=== PATIENT | male | born 1995 | race Caucasian/White ===

== ENCOUNTER → 2018-08-01 | Outpatient (CLI) | payer OTHER ==
[~2018-08-01] MED LIST: GADOBUTROL 10 ML VIAL IVP ONE; GLUCAGON HCL 0.3 MG in SYRINGE 0.3 ML IVP ONE
== END ==
LOC: FIMAGING 10:11
PROVIDERS: ATTEND Physician Assistant
DX: R10.31 Right lower quadrant pain (principal)
CPT/HCPCS: A9585; J1610

== ENCOUNTER 2018-10-16 21:08 | Observation (INO) | payer OTHER ==
--- NOTE | 2018-10-16 21:36 | EDPHY ---
H & P Time Seen by Provider: 10/16/18 21:35 HPI/ROS: Chief complaint. Left-sided body numb, facial twitching HPI. 22-year-old male presents with left-sided weakness, left facial tremor, numbness on his left side. He was riding in a car and began to feel weird. He feels he had some transient left vision change in left hearing change. Last time normal was 8:00 p.m. With onset. He arrived by private vehicle and not by EMS. No chest pain or shortness of breath. No headache. His weakness and paresthesias and facial tremor continue in the ED. Stroke activation was called by me. He is not sick. No fever. No recent head injury. ROS 10 systems were reviewed and negative with the exception of the elements mentioned in the history of present illness Past Medical/Surgical History: Anxiety, colon problems Social History: , nonsmoker, no alcohol Smoking Status: Never smoked Physical Exam: General Appearance: Alert well-developed male moderate distress vital signs significant heart rate 104 Eyes: Pupils equal and round no pallor or injection. ENT, Mouth: Mucous membranes are moist. Respiratory: There are no retractions, lungs are clear to auscultation. Cardiovascular: Regular rate and rhythm. Gastrointestinal: Abdomen is soft and nontender, no masses, bowel sounds normal. Neurological: Awake and alert. Speech is somewhat halting. Cranial nerve testing shows paresthesias to the left face. There is left mouth twitching. Left-sided pronator drift. Abnormal left [id number]. Abnormal heel-to- bedoya left leg. Numbness sensation to left arm left leg Skin: Warm and dry, no rashes. Musculoskeletal: Neck is supple nontender. Extremities symmetrical, full range of motion. Psychiatric: Patient is oriented X 3, there is no agitation. Constitutional: Initial Vital Signs Temperature (C) 36.5 C 10/16/18 21:10 Heart Rate 104 H 10/16/18 21:10 Respiratory Rate 18 10/16/18 21:10 Blood Pressure 148/111 H 10/16/18 21:10 O2 Sat (%) 97 10/16/18 21:10 O2 Delivery Mode Room Air Allergies/Adverse Reactions: No Known Allergies Allergy (Unverified 10/16/18 21:18) Home Medications: Medication Instructions Recorded Escitalopram Oxalate [Lexapro] 10 mg PO DAILY 10/16/18 Medical Decision Making - Diagnostics EKG Interpretation: EKG interpreted by me shows normal sinus rhythm normal interval and axis. QRS is normal there is no significant ST elevation or depression. No arrhythmia. The rate is 86 Imaging Results: Imaging Impressions Head CT 10/16/18 21:37 Impression: 1. No significant intracranial abnormality seen. If symptoms worsen, additional imaging may be necessary. Findings discussed with Sree Keller M.D. at 22:00 hour, 10/16/2018. Chest X-Ray 10/16/18 21:45 Impression: Normal chest x-ray. Head CTA 10/16/18 22:27 Impression: 1. Normal CT angiogram of the neck. Incidental tortuosity of the distal right ICA below the skull base. 2. Normal CT angiogram of [place], as detailed above. Note: All calculations were performed using NASCET criteria. Findings discussed with Sree Keller M.D. at 23:01 hour, 10/16/2018. Neck CTA 10/16/18 22:27 Impression: 1. Normal CT angiogram of the neck. Incidental tortuosity of the distal right ICA below the skull base. 2. Normal CT angiogram of [place], as detailed above. Note: All calculations were performed using NASCET criteria. Findings discussed with Sree Keller M.D. at 23:01 hour, 10/16/2018. Noncontrast head CT reviewed by me and discussed with Dr. Morales is normal. No intracranial bleeding CTA head and neck reviewed by me and discussed with Dr. Morales are normal Chest x-ray interpreted by me is normal Procedures: Stroke activation is activated after I saw the patient ED Course/Re-evaluation: Patient examined on the robot by Dr. Pinedo for [facility]. He feels that this is likely functional or behavioral and not CVA. He recommends no tPA at this point in time. He recommends CTA head and neck. Re-evaluation upon return from CT a patient's symptoms continue. I have placed another phone call to Dr. Pinedo. I have reviewed imaging studies with Dr. Pinedo including treatment plan. He still feels no tPA for this patient. He recommends MRI without contrast. I consulted and discussed the case with Dr. [place] who see the patient in the ED. He agrees with the admission. MRI has been ordered. Differential Diagnosis: I considered CVA, intracranial bleeding, conversion reaction, anxiety - Data Points Laboratory Results: Laboratory Results 10/16/18 21:48 10/16/18 21:32 10/16/18 10/16/18 10/16/18 22:00 21:52 21:51 WBC RBC Hgb POC Hgb 16.0 gm/dL gm/dL (13.7-17.5) Hct POC Hct 47 % % (40-51) MCV MCH MCHC RDW Plt Count MPV Neut % (Auto) Lymph % (Auto) Cooke % (Auto) Eos % (Auto) Baso % (Auto) Nucleat RBC Rel Count Absolute Neuts (auto) Absolute Lymphs (auto) Absolute Monos (auto) Absolute Eos (auto) Absolute Basos (auto) Absolute Nucleated RBC Immature Gran % Immature Gran # PT 13.6 SEC SEC (12.0-15.0) INR 1.08 (0.83-1.16) APTT 24.2 SEC SEC (23.0-38.0) POC Sodium 143 mEq/L mEq/L (135-145) Sodium POC Potassium 3.4 mEq/L mEq/L (3.3-5.0) Potassium POC Chloride 103 mEq/L mEq/L (97-110) Chloride Carbon Dioxide POC Total CO2 26 mEq/L mEq/L (22-31) Anion Gap POC BUN 15 mg/dL mg/dL (7-23) BUN Creatinine POC Creatinine 0.7 mg/dL mg/dL (0.7-1.3) Estimated GFR Glucose POC Glucose 127 mg/dL H mg/dL (70-100) Calcium POC Troponin I 0.00 ng/mL ng/mL (0.00-0.08) 10/16/18 10/16/18 10/16/18 21:48 21:32 21:32 WBC 17.19 10^3/uL H 10^3/uL (3.80-9.50) RBC 5.54 10^6/uL 10^6/uL (4.40-6.38) Hgb 16.6 g/dL g/dL (13.7-17.5) POC Hgb Hct 45.9 % % (40.0-51.0) POC Hct MCV 82.9 fL fL (81.5-99.8) MCH 30.0 pg pg (27.9-34.1) MCHC 36.2 g/dL g/dL (32.4-36.7) RDW 12.5 % % (11.5-15.2) Plt Count 252 10^3/uL 10^3/uL (150-400) MPV 10.5 fL fL (8.7-11.7) Neut % (Auto) 73.6 % % (39.3-74.2) Lymph % (Auto) 16.8 % % (15.0-45.0) Cooke % (Auto) 7.1 % % (4.5-13.0) Eos % (Auto) 1.6 % % (0.6-7.6) Baso % (Auto) 0.3 % % (0.3-1.7) Nucleat RBC Rel Count 0.0 % % (0.0-0.2) Absolute Neuts (auto) 12.66 10^3/uL H 10^3/uL (1.70-6.50) Absolute Lymphs (auto) 2.88 10^3/uL 10^3/uL (1.00-3.00) Absolute Monos (auto) 1.22 10^3/uL H 10^3/uL (0.30-0.80) Absolute Eos (auto) 0.28 10^3/uL 10^3/uL (0.03-0.40) Absolute Basos (auto) 0.05 10^3/uL 10^3/uL (0.02-0.10) Absolute Nucleated RBC 0.00 10^3/uL 10^3/uL (0-0.01) Immature Gran % 0.6 % % (0.0-1.1) Immature Gran # 0.10 10^3/uL 10^3/uL (0.00-0.10) PT REJ INR REJ APTT REJ POC Sodium Sodium 139 mEq/L mEq/L (135-145) POC Potassium Potassium 4.1 mEq/L mEq/L (3.5-5.2) POC Chloride Chloride 101 mEq/L mEq/L (97-110) Carbon Dioxide 24 mEq/l mEq/l (22-31) POC Total CO2 Anion Gap 14 mEq/L mEq/L (6-14) POC BUN BUN 16 mg/dL mg/dL (7-23) Creatinine 0.8 mg/dL mg/dL (0.7-1.3) POC Creatinine Estimated GFR > 60 Glucose 131 mg/dL H mg/dL (70-100) POC Glucose Calcium 9.7 mg/dL mg/dL (8.5-10.4) POC Troponin I 10/16/18 21:32 WBC REJ RBC REJ Hgb REJ POC Hgb Hct REJ POC Hct MCV REJ MCH REJ MCHC REJ RDW REJ Plt Count REJ MPV REJ Neut % (Auto) REJ Lymph % (Auto) REJ Cooke % (Auto) REJ Eos % (Auto) REJ Baso % (Auto) REJ Nucleat RBC Rel Count REJ Absolute Neuts (auto) REJ Absolute Lymphs (auto) REJ Absolute Monos (auto) REJ Absolute Eos (auto) REJ Absolute Basos (auto) REJ Absolute Nucleated RBC REJ Immature Gran % REJ Immature Gran # REJ PT INR APTT POC Sodium Sodium POC Potassium Potassium POC Chloride Chloride Carbon Dioxide POC Total CO2 Anion Gap POC BUN BUN Creatinine POC Creatinine Estimated GFR Glucose POC Glucose Calcium POC Troponin I Medications Given: Discontinued Medications Sodium Chloride (Ns) 1,000 mls @ 500 mls/hr IV EDNOW ONE PRN Reason: Protocol Stop: 10/16/18 23:44 Last Admin: 10/16/18 22:06 Dose: 1,000 mls Point of Care Test Results: Chemistry 10/16/18 10/16/18 21:52 21:51 POC Sodium 143 mEq/L mEq/L (135-145) POC Potassium 3.4 mEq/L mEq/L (3.3-5.0) POC Chloride 103 mEq/L mEq/L (97-110) POC Total CO2 26 mEq/L mEq/L (22-31) POC BUN 15 mg/dL mg/dL (7-23) POC Creatinine 0.7 mg/dL mg/dL (0.7-1.3) POC Glucose 127 mg/dL H mg/dL (70-100) POC Troponin I 0.00 ng/mL ng/mL (0.00-0.08) ISTAT H&H 10/16/18 21:52 POC Hgb 16.0 gm/dL gm/dL (13.7-17.5) POC Hct 47 % % (40-51) Departure - Departure Disposition: [facility] Clinical Impression: Weakness Condition: Fair
[2018-10-16] MEDS ORDERED: NS 1,000 ML IV ONE (21:45)
[2018-10-16 21:59] LABS: PLATELET COUNT 252 10^3/uL (150-400)
[2018-10-16] MEDS ORDERED: IOPAMIDOL (ISOVUE-370) 150 ML BTL IV ONE (22:29)
[2018-10-16 22:38] LABS: INR 1.08 (0.83-1.16); PROTIME(PATIENT) 13.6 SEC (12.0-15.0)
[2018-10-17] MEDS ORDERED: ACETAMINOPHEN 325 MG TAB PO PRN (01:40)
[2018-10-17] MEDS ORDERED: ONDANSETRON DISINTEGRATING 4 MG TAB PO PRN (01:40)
[2018-10-17] MEDS ORDERED: ONDANSETRON 4 MG/2 ML VIAL IVP PRN (01:40)
--- NOTE | 2018-10-17 01:51 | PDGENHP ---
History and Physical - Chief Complaint Weakness - History of Present Illness 22 yo M w/ hx of depression presents with weakness and numbness. The patient was riding in the car when he felt nauseous. He then developed L face, arm, and leg numbness and weakness. He also developed L facial twitching. He was brought to ED by private vehicle. A stroke alert was called upon arrival. A CTH and CTA Head/Neck were unremarkable. He was evaluated by [facility] who did not recommend tPA. During my evaluation the patient's symptoms remained unchanged. His strength examination is somewhat inconsistent. He is displaying bilateral, upper facial weakness that seems possibly volitional. I do not appreciate a facial droop as his smile is symmetrical. He describes numbness in L face, arm, and leg. He is displaying slowed movement of LUE and LLE but can range extremities against gravity. The left corner of his mouth is intermittently twitching during my exam. He has no dysarthria or aphasia. The patient is being admitted for MRI and neurology evaluation. Case discussed with ED physician Dr. Keller; records reviewed and summarized above. History Information - Allergies/Home Medication List Allergies/Adverse Reactions: No Known Allergies Allergy (Unverified 10/16/18 21:18) Home Medications: Escitalopram Oxalate [Lexapro] 10 mg PO DAILY 10/16/18 [Last Taken Unknown] I have personally reviewed and updated: family history, medical history - Past Medical History Additional medical history: Depression - Surgical History Reports: no pertinent surgical hx - Family History Additional family history: Grandfather may have had a stroke - Social History Smoking Status: Never smoked Review of Systems Review of Systems: ROS: 10pt was reviewed & negative except for what was stated in HPI & below Physical Exam Physical Exam: Temp Pulse Resp BP Pulse Ox 36.9 C 79 18 125/74 H 95 10/17/18 01:20 10/17/18 01:20 10/17/18 01:07 10/17/18 01:20 10/17/18 01:20 Constitutional: no apparent distress, appears nourished Eyes: PERRL, EOMI Ears, Nose, Mouth, Throat: moist mucous membranes, no oral mucosal ulcers Cardiovascular: regular rate and rhythym, no murmur, rub, or gallop Respiratory: no respiratory distress, clear to auscultation Gastrointestinal: normoactive bowel sounds, soft, non-tender abdomen Skin: warm, normal color Neurologic: AAOx3, weakness (L side), numbness (L side), No facial droop Psychiatric: interacting appropriately, not anxious Lab Data & Imaging Review 10/16/18 21:48 10/16/18 21:32 WBC 17.19 10^3/uL (3.80-9.50) H 10/16/18 21:48 RBC 5.54 10^6/uL (4.40-6.38) 10/16/18 21:48 Hgb 16.6 g/dL (13.7-17.5) 10/16/18 21:48 POC Hgb 16.0 gm/dL (13.7-17.5) 10/16/18 21:52 Hct 45.9 % (40.0-51.0) 10/16/18 21:48 POC Hct 47 % (40-51) 10/16/18 21:52 MCV 82.9 fL (81.5-99.8) 10/16/18 21:48 MCH 30.0 pg (27.9-34.1) 10/16/18 21:48 MCHC 36.2 g/dL (32.4-36.7) 10/16/18 21:48 RDW 12.5 % (11.5-15.2) 10/16/18 21:48 Plt Count 252 10^3/uL (150-400) 10/16/18 21:48 MPV 10.5 fL (8.7-11.7) 10/16/18 21:48 Neut % (Auto) 73.6 % (39.3-74.2) 10/16/18 21:48 Lymph % (Auto) 16.8 % (15.0-45.0) 10/16/18 21:48 [place] % (Auto) 7.1 % (4.5-13.0) 10/16/18 21:48 Eos % (Auto) 1.6 % (0.6-7.6) 10/16/18 21:48 Baso % (Auto) 0.3 % (0.3-1.7) 10/16/18 21:48 Nucleat RBC Rel Count 0.0 % (0.0-0.2) 10/16/18 21:48 Absolute Neuts (auto) 12.66 10^3/uL (1.70-6.50) H 10/16/18 21:48 Absolute Lymphs (auto) 2.88 10^3/uL (1.00-3.00) 10/16/18 21:48 Absolute Monos (auto) 1.22 10^3/uL (0.30-0.80) H 10/16/18 21:48 Absolute Eos (auto) 0.28 10^3/uL (0.03-0.40) 10/16/18 21:48 Absolute Basos (auto) 0.05 10^3/uL (0.02-0.10) 10/16/18 21:48 Absolute Nucleated RBC 0.00 10^3/uL (0-0.01) 10/16/18 21:48 Immature Gran % 0.6 % (0.0-1.1) 10/16/18 21:48 Immature Gran # 0.10 10^3/uL (0.00-0.10) 10/16/18 21:48 PT 13.6 SEC (12.0-15.0) 10/16/18 22:00 INR 1.08 (0.83-1.16) 10/16/18 22:00 APTT 24.2 SEC (23.0-38.0) 10/16/18 22:00 POC Sodium 143 mEq/L (135-145) 10/16/18 21:52 Sodium 139 mEq/L (135-145) 10/16/18 21:32 POC Potassium 3.4 mEq/L (3.3-5.0) 10/16/18 21:52 Potassium 4.1 mEq/L (3.5-5.2) 10/16/18 21:32 POC Chloride 103 mEq/L (97-110) 10/16/18 21:52 Chloride 101 mEq/L (97-110) 10/16/18 21:32 Carbon Dioxide 24 mEq/l (22-31) 10/16/18 21:32 POC Total CO2 26 mEq/L (22-31) 10/16/18 21:52 Anion Gap 14 mEq/L (6-14) 10/16/18 21:32 POC BUN 15 mg/dL (7-23) 10/16/18 21:52 BUN 16 mg/dL (7-23) 10/16/18 21:32 Creatinine 0.8 mg/dL (0.7-1.3) 10/16/18 21:32 POC Creatinine 0.7 mg/dL (0.7-1.3) 10/16/18 21:52 Estimated GFR > 60 10/16/18 21:32 Glucose 131 mg/dL (70-100) H 10/16/18 21:32 POC Glucose 127 mg/dL (70-100) H 10/16/18 21:52 Calcium 9.7 mg/dL (8.5-10.4) 10/16/18 21:32 POC Troponin I 0.00 ng/mL (0.00-0.08) 10/16/18 21:51 Urine Opiates Screen NEGATIVE (NEGATIVE) 10/17/18 01:00 Urine Barbiturates NEGATIVE (NEGATIVE) 10/17/18 01:00 Ur Phencyclidine Scrn NEGATIVE (NEGATIVE) 10/17/18 01:00 Ur Amphetamine Screen NEGATIVE (NEGATIVE) 10/17/18 01:00 U Benzodiazepines Scrn NEGATIVE (NEGATIVE) 10/17/18 01:00 Urine Cocaine Screen NEGATIVE (NEGATIVE) 10/17/18 01:00 U Marijuana (THC) Screen NEGATIVE (NEGATIVE) 10/17/18 01:00 Imaging Review: Imaging Impressions Head CT 10/16/18 21:37 Impression: 1. No significant intracranial abnormality seen. If symptoms worsen, additional imaging may be necessary. Findings discussed with Sree Keller M.D. at 22:00 hour, 10/16/2018. Chest X-Ray 10/16/18 21:45 Impression: Normal chest x-ray. Head CTA 10/16/18 22:27 Impression: 1. Normal CT angiogram of the neck. Incidental tortuosity of the distal right ICA below the skull base. 2. Normal CT angiogram of the [place], as detailed above. Note: All calculations were performed using NASCET criteria. Findings discussed with Sree Keller M.D. at 23:01 hour, 10/16/2018. Neck CTA 10/16/18 22:27 Impression: 1. Normal CT angiogram of the neck. Incidental tortuosity of the distal right ICA below the skull base. 2. Normal CT angiogram of the [place], as detailed above. Note: All calculations were performed using NASCET criteria. Findings discussed with Sree Keller M.D. at 23:01 hour, 10/16/2018. Assessment & Plan Assessment: 22 yo M w/ depression presents with L-sided weakness and numbness. Plan: 1. L sided weakness, numbness - Patient presents with acute onset L-sided weakness and numbness. He was evaluated by [facility] who did not recommend tPA due to inconsistent exam findings. His neurologic findings cannot be explained by a single neurologic lesion raising suspicion for psychiatrically driven somatic symptom disorder. CTH, CTA Head/Neck, and MRI brain performed on admission are all unremarkable. - Admit for observation - Will defer additional stroke work-up for now - Neurology consultation placed for additional evaluation - PT/OT evaluations 2. Depression - Continue SSRI pending reconciliation Diet - Regular pending RN swallow screen Code - Full Ppx - Low risk, ambulate TID Dispo - Admit under observation status
[2018-10-17 05:13] LABS: PLATELET COUNT 214 10^3/uL (150-400)
--- NOTE | 2018-10-17 09:16 | GCON ---
[f rep st] CONSULTATION NEUROLOGIC CONSULTATION REFERRING PHYSICIAN: Nakul Marrero MD HISTORY: The patient is a 22-year-old who came to the emergency room yesterday by private vehicle af ter an episode occurred at home in which he developed some twitching in his left face, as well as alexandria lution over 30 minutes of numbness in the left leg and arm and face, as well as some left-sided weakn ess. He said he felt a pressure sensation in the left ear, as if he was in a tunnel, and also some b lurring of vision in the left eye. Because the symptoms were not resolving, he came to the emergency room. Stroke Alert was called, but was not felt to be a tPA candidate due to low probability of str joey from the [place] [facility]. He had a head CT and CT angiogram of the head and neck, which we re unrevealing for any source for this, and subsequent brain MRI has been done and normal. The ghada trimble has no report of any acute stressors. He has a history of some anxiety for which he takes an anti depressant for about a year and a half, but says that is not an acute problem, and never has experien good any physical manifestations of anxiety or depression, and no history of panic attacks. The ghada nt reported during some of this episode, he knew what we wanted to say and could not get his words to come out. He said symptoms are perhaps a little bit better without twitching occurring, but he still feels numb ness on the left side and a little bit of weakness. He has not had any recent trauma. No fever, chi lls, nausea, vomiting, or diarrhea. He did say he felt a little bit of a queasy or nausea-type feeli ng with the onset of this, but did not vomit. There has not been headache of any significance with t . He does not have a known history of migraine. Interestingly, he has a sister who has been diag nosed with complex migraine who has had episodes of hospitalization and evaluation for unexplained fa cial weakness. No other family members with known migraine. He is otherwise a healthy man. 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 The patient is not a smoker. No drug abuse. REVIEW OF SYSTEMS: As outlined above. Otherwise unremarkable. PHYSICAL EXAM: VITAL SIGNS: The blood pressure is 129/71, pulse of 88, respirations 16, temperature 36.9. GENERAL: He is well developed in no acute distress. EYES: Clear. NECK: Supple with no br uits or masses. CARDIAC: Regular rate and rhythm. No murmur. NEUROLOGIC: He is alert and attenti ve with a flattened affect, but able to communicate effectively, and no impairment currently of langu age skills. Pupils 3 mm and reactive. Extraocular movements are intact. Normal facial movement, bu t there is relative decreased perception of light touch and temperature in the left cheek compared to the right. Palate elevates symmetrically. Tongue protrudes midline. MOTOR: Normal muscle bulk an d tone, but mild weakness in the 4/5 range in the left arm and leg with some give-way in variability. SENSATION: He also says is different in the left arm and left leg compared to the right, where it is diminished for modalities of touch and temperature. Reflexes are 2+ and symmetric. No Babinski s igns. No ataxia on [id number], although he moves the hands more slowly on the left than the righ t. LABORATORY STUDIES: White count is 11,000. Chemistries unremarkable. Tox screen was negative. Nor mal INR. IMPRESSION: Total unit time of 50 minutes. The patient has an evolution over about 30 minutes where there have been combinations of left-sided numbness and weakness, facial twitching and some word-fin ding problems, altered hearing on the left and blurred vision in the left eye. Even now, over 12 winsome rs later, there is not full resolution. There is variability in the examination, but the relevance o f that is a bit unclear. The differential considerations include structural lesions, which have effe ctively been ruled out by MRI. This makes the likelihood of stroke or tumor or multiple sclerosis un likely. A complex migraine phenomena, particularly with the family history of a sister having such a diagnosis, is still a possibility, although this is atypical in the prolonged duration. He has a hi story of some anxiety, but has never had physical manifestations of his anxiety. The possibility of conversion has to be considered and would be part of a rule out diagnosis, and we talked about that, though he says he is not really under any unique stressors right now. As a result of the current sit uation, I am going to consult Physical and Occupational Therapy with the anticipation of him being di scharged home today. He is comfortable with that, as are his father and his . He is not capable of working in his current state, so he would need a work excuse until this resolves. The general pr ognosis will be good for recovery, but if he does not improve within 24 hours, he is instructed to ca ll me and we can talk about other strategies including some outpatient therapy to continue working wi th him. /[id number]/MODL
--- NOTE | 2018-10-17 14:34 | ASMTDCNOTE ---
Case Management Discharge Discharge Order Complete? Answers: No Patient to Obtain Answers: via Family Medications Transportation Arranged Answers: Family/Friends Family Notified Answers: Yes Discharge Comments Notes: Chart Review for discharge planning: Patient is a 22 year old male who presented to [facility] ED with L face, arm, and leg numbness and weakness and L face twitching. Patient arrived by private car. Medical history includes depression. CM discussed with LAUREN Foster, patient to discharge home independent with family. CM available to follow if any CM needs arise. Date Signed: 10/17/2018 02:32 PM Electronically Signed By:Lexii Copeland
[2018-10-17 15:08] VITALS: BP 109/63
--- NOTE | 2018-10-17 16:16 | PDDCSUM ---
Discharge Summary Discharge Summary: Discharge diagnosis Left-sided weakness Depression Migraine 22-year-old male with past medical history of depression and headaches admitted with left-sided weakness. CTA head and neck was obtained which was negative for an acute CVA. [facility] was consulted who did not think that the patient should receive tPA. MRI brain was obtained which was negative for any acute pathology. Neurology was consulted who ultimately never came up with a concluding diagnosis to explain the etiology of his left-sided weakness. The differential diagnosis include complex migraine, conversion disorder. Neurology consulted Occupational therapy as his symptoms had not completely resolved but Neurology was comfortable with him being discharged home. Neurology recommended working with occupational therapy and if his symptoms had not improved within 24 hr he was instructed to follow up with Neurology for further evaluation. He felt comfortable this plan. He was discharged home in good condition to follow up with his primary care physician along with Neurology if symptoms persisted. Disposition Home in good condition Consultation Neurology Dr. Castro.
--- NOTE | 2018-10-18 10:05 | CPEKG ---
Test Reason : OPEN Blood Pressure : / mmHG Vent. Rate : 086 BPM Atrial Rate : 086 BPM P-R Int : 154 ms QRS Dur : 077 ms QT Int : 361 ms P-R-T Axes : 033 058 034 degrees QTc Int : 432 ms Sinus rhythm Confirmed by Lv Lozano ([id number]) on 10/18/2018 10:04:42 AM Referred By: Nakul Marrero Confirmed By:Lv Lozano
== END 2018-10-17 15:30 | disposition home or self-care (01) ==
LOC: F3N 10-17 01:17
PROVIDERS: ADMIT Student in an Organized Health Care Education/Training Program; ATTEND Internal Medicine
DX: R53.1 Weakness (principal); R20.2 Paresthesia of skin; H53.8 Other visual disturbances; E86.9 Volume depletion, unspecified; R29.708 NIHSS score 8; D72.829 Elevated white blood cell count, unspecified; F32.9 Major depressive disorder, single episode, unspecified; G43.909 Migraine, unspecified, not intractable, without status migrainosus; F41.9 Anxiety disorder, unspecified
CPT/HCPCS: 70450; 70496; 70498; 70551; 71045; 93005; 96360; 97110; 97116; 97162; 97165; 99285; G0378; 80305; 82435-PO; 82565-PO; 82947-PO; 84132-PO; 84295-PO; 84484-ER; 84520-PO; 85014-ER; Q9967

== ENCOUNTER 2018-12-10 15:34 | Emergency (ER) | payer OTHER ==
--- NOTE | 2018-12-10 15:46 | EDPHY ---
H & P Stated Complaint: cp /since 1100 sob l arm numbness and pain Time Seen by Provider: 12/10/18 15:45 - Personal History Current Tetanus Diphtheria and Acellular Pertussis (TDAP): Yes - Medical/Surgical History Hx Asthma: No Hx Chronic Respiratory Disease: No Hx Diabetes: No Hx Cardiac Disease: No Hx Renal Disease: No Hx Cirrhosis: No Hx Alcoholism: No Hx HIV/AIDS: No Hx Splenectomy or Spleen Trauma: No Other PMH: anxiety, colon problems, Fatty liver - Social History Smoking Status: Never smoked Constitutional: Initial Vital Signs Temperature (C) 36.8 C 12/10/18 15:41 Heart Rate 80 12/10/18 15:41 Respiratory Rate 18 12/10/18 15:41 Blood Pressure 140/90 H 12/10/18 15:41 O2 Sat (%) 97 12/10/18 15:41 O2 Delivery Mode Room Air Allergies/Adverse Reactions: No Known Allergies Allergy (Verified 12/10/18 15:40) Home Medications: Medication Instructions Recorded Escitalopram Oxalate [Lexapro 10 10 mg PO DAILY 10/16/18 MG] Gabapentin 12/10/18 Medical Decision Making ED Course/Re-evaluation: CHIEF COMPLAINT: Chest pain and shortness of breath HISTORY OF PRESENT ILLNESS: The patient is a 22 y/o male with a history of anxiety complaining of mid- sternal chest pain and shortness of breath onset 1-2 weeks ago. The patient initially became short of breath 1-2 weeks ago and had a sleep study performed which was normal. He saw his PCP who was scheduling an echo. Today at 11:00, 5 hours ago, he developed mid-sternal chest pain radiating to his left arm. It feels like someone is sitting on his chest and there is a cuff around his arm. No fever, headache, body aches, lightheadedness, heart palpitations, cough, abdominal pain, urinary or bowel complaints, numbness, paresthesias. REVIEW OF SYSTEMS: A comprehensive 10 system review of systems is otherwise negative aside from elements mentioned in the history of present illness and medical decision making. PHYSICAL EXAM: HR, BP, O2 Sat, RR. Temp noted General Appearance: Alert, well hydrated, appropriate, and non-toxic appearing. Head: Atraumatic without scalp tenderness or obvious injury Eyes: Pupils equal, round, reactive to light and accommodation, EOMI, no trauma , no injection. Ears: Clear bilaterally, no perforation, normal landmarks Nose: Atraumatic, no rhinorrhea, clear. Throat: There is no erythema or exudates, no lesions, normal tonsils, mucus membranes moist. Neck: Supple, 2+ carotid upstroke, nontender, no lymphadenopathy. Respiratory: No retractions, no distress, no wheezes, and no accessory muscle use. Lungs are clear to auscultation bilaterally. Cardiovascular: Tachycardia, no murmurs, rubs, or gallops. Bilateral carotid, radial, dorsalis pedis, and posterior tibial pulses intact. Good capillary refill all extremities. Gastrointestinal: Abdomen is soft, nontender, non-distended, no masses, no rebound, no guarding, no peritoneal signs. Musculoskeletal: Normal active ROM of all extremities, atraumatic. Neurological: Alert, appropriate, and interactive. The patient has normal DTRs and non-focal cranial nerves, motor, sensory, and cerebellar exam. Skin: No rashes, good turgor, no nodules on palpation. Past medical history: Anxiety, colon problems, Fatty liver Past surgical history: Denies Family history: Grandfather on mother's side had UT at 30 y/o. Social history: Lives in [place], at bedside, employed DIAGNOSTICS/PROCEDURES/CRITICAL CARE TIME: EKG: The 12 lead EKG was interpreted by myself as sinus tachycardia with a rate of 104. See hard copy and/or "tracemaster" electronic copy for interpretation. DIFFERENTIAL DIAGNOSIS: The differential diagnosis for the patient's chest pain included but was not limited to myocardial ischemia, pulmonary embolus, chest wall pain, pleural inflammation, and pulmonary infectious causes. The differential diagnosis for the patient's shortness of breath and hypoxemia included but was not limited to pneumonia, myocardial infarction, acute mountain sickness, high altitude pulmonary edema, congestive heart failure, and pulmonary embolus. MEDICAL DECISION MAKING: The patient is a 22 y/o male with a history of anxiety presenting with mid- sternal chest pain and shortness of breath onset 1-2 weeks ago. Today at 11:00 , 5 hours ago, he developed mid-sternal chest pain radiating to his left arm. It feels like someone is sitting on his chest and there is a cuff around his arm. He has a normal physical exam besides tachycardia. Labs, chest x-ray, and EKG ordered. 1548: Patient's EKG reveals sinus tachycardia with a rate of 104. 1610: Patient's troponin is negative. 1700: Patient's labs are unremarkable and his O2Sats are 99% on room air. Patient's HEARTscore is 1. 1702: Reassessed patient and discussed laboratory findings. I reviewed the share decision making instrument with the patient, including risk of MACE, and the patient (and family) that are in agreement with the chosen disposition. I have advised him to follow up with a public relations account supervisor. Return precautions provided; patient is comfortable with this plan. - Data Points Laboratory Results: Laboratory Results 12/10/18 15:55 12/10/18 15:55 12/10/18 12/10/18 12/10/18 16:02 15:58 15:55 WBC RBC Hgb POC Hgb 17.0 gm/dL gm/dL (13.7-17.5) Hct POC Hct 50 % % (40-51) MCV MCH MCHC RDW Plt Count MPV Neut % (Auto) Lymph % (Auto) [place] % (Auto) Eos % (Auto) Baso % (Auto) Nucleat RBC Rel Count Absolute Neuts (auto) Absolute Lymphs (auto) Absolute Monos (auto) Absolute Eos (auto) Absolute Basos (auto) Absolute Nucleated RBC Immature Gran % Immature Gran # ESR D-Dimer < 0.27 ug/mLFEU ug/mLFEU (0.00-0.50) POC Sodium 141 mEq/L mEq/L (135-145) Sodium POC Potassium 3.5 mEq/L mEq/L (3.3-5.0) Potassium POC Chloride 102 mEq/L mEq/L (97-110) Chloride Carbon Dioxide POC Total CO2 26 mEq/L mEq/L (22-31) Anion Gap POC BUN 10 mg/dL mg/dL (7-23) BUN Creatinine POC Creatinine 0.8 mg/dL mg/dL (0.7-1.3) Estimated GFR Glucose POC Glucose 89 mg/dL mg/dL (70-100) Calcium POC Troponin I 0.00 ng/mL ng/mL (0.00-0.08) C-Reactive Protein NT-Pro-B Natriuret Pep 12/10/18 12/10/18 15:55 15:55 WBC 8.81 10^3/uL 10^3/uL (3.80-9.50) RBC 5.69 10^6/uL 10^6/uL (4.40-6.38) Hgb 17.0 g/dL g/dL (13.7-17.5) POC Hgb Hct 47.7 % % (40.0-51.0) POC Hct MCV 83.8 fL fL (81.5-99.8) MCH 29.9 pg pg (27.9-34.1) MCHC 35.6 g/dL g/dL (32.4-36.7) RDW 13.1 % % (11.5-15.2) Plt Count 258 10^3/uL 10^3/uL (150-400) MPV 10.2 fL fL (8.7-11.7) Neut % (Auto) 53.5 % % (39.3-74.2) Lymph % (Auto) 36.1 % % (15.0-45.0) [place] % (Auto) 7.5 % % (4.5-13.0) Eos % (Auto) 2.3 % % (0.6-7.6) Baso % (Auto) 0.3 % % (0.3-1.7) Nucleat RBC Rel Count 0.0 % % (0.0-0.2) Absolute Neuts (auto) 4.71 10^3/uL 10^3/uL (1.70-6.50) Absolute Lymphs (auto) 3.18 10^3/uL H 10^3/uL (1.00-3.00) Absolute Monos (auto) 0.66 10^3/uL 10^3/uL (0.30-0.80) Absolute Eos (auto) 0.20 10^3/uL 10^3/uL (0.03-0.40) Absolute Basos (auto) 0.03 10^3/uL 10^3/uL (0.02-0.10) Absolute Nucleated RBC 0.00 10^3/uL 10^3/uL (0-0.01) Immature Gran % 0.3 % % (0.0-1.1) Immature Gran # 0.03 10^3/uL 10^3/uL (0.00-0.10) ESR 5 MM/HR MM/HR (0-15) D-Dimer POC Sodium Sodium 137 mEq/L mEq/L (135-145) POC Potassium Potassium 3.9 mEq/L mEq/L (3.5-5.2) POC Chloride Chloride 101 mEq/L mEq/L (97-110) Carbon Dioxide 24 mEq/l mEq/l (22-31) POC Total CO2 Anion Gap 12 mEq/L mEq/L (6-14) POC BUN BUN 12 mg/dL mg/dL (7-23) Creatinine 0.7 mg/dL mg/dL (0.7-1.3) POC Creatinine Estimated GFR > 60 Glucose 88 mg/dL mg/dL (70-100) POC Glucose Calcium 9.6 mg/dL mg/dL (8.5-10.4) POC Troponin I C-Reactive Protein < 5.0 mg/L mg/L (<10.0) NT-Pro-B Natriuret Pep 30 pg/mL pg/mL (0-125) Point of Care Test Results: Chemistry 12/10/18 12/10/18 16:02 15:58 POC Sodium 141 mEq/L mEq/L (135-145) POC Potassium 3.5 mEq/L mEq/L (3.3-5.0) POC Chloride 102 mEq/L mEq/L (97-110) POC Total CO2 26 mEq/L mEq/L (22-31) POC BUN 10 mg/dL mg/dL (7-23) POC Creatinine 0.8 mg/dL mg/dL (0.7-1.3) POC Glucose 89 mg/dL mg/dL (70-100) POC Troponin I 0.00 ng/mL ng/mL (0.00-0.08) ISTAT H&H 12/10/18 16:02 POC Hgb 17.0 gm/dL gm/dL (13.7-17.5) POC Hct 50 % % (40-51) Departure - Departure Disposition: Home, Routine, Self-Care Clinical Impression: Shortness of breath Chest pain Qualifiers: Chest pain type: other chest pain Qualified Code(s): R07.89 - Other chest pain Condition: Good Instructions: Chest Pain (ED), Dyspnea (ED) Additional Instructions: 1. Follow-up with your primary doctor within 72 hours. 2. Return to the Emergency Department for fever, chest pain, shortness of breath , increasing pain or other worsening of condition. 3. Follow up with a public relations account supervisor for further testing, as soon as possible, within one week. 4. As we discussed, it is impossible to fully rule out heart disease as the cause of your chest pain in the emergency department. We would be happy to reevaluate you and observe you in the hospital at any time. Referrals: Taylor Foss MD [Primary Care Provider] - As per Instructions Ashlee Norman MD [Medical Doctor] - As per Instructions Report Scribed for: Braeden Amaro Report Scribed by: Khloe Epperson Date of Report: 12/10/18 Time of Report: 15:51
[2018-12-10 16:15] LABS: PLATELET COUNT 258 10^3/uL (150-400)
[2018-12-10 16:47] VITALS: BP 126/81
--- NOTE | 2018-12-10 20:34 | CPEKG ---
Test Reason : OPEN Blood Pressure : / mmHG Vent. Rate : 104 BPM Atrial Rate : 104 BPM P-R Int : 143 ms QRS Dur : 092 ms QT Int : 340 ms P-R-T Axes : 046 047 034 degrees QTc Int : 448 ms Sinus tachycardia Confirmed by Braeden Amaro ([id number]) on 12/10/2018 8:34:14 PM Referred By: Braeden Amaro Confirmed By:Braeden Amaro
== END 2018-12-10 17:13 | disposition home or self-care (01) ==
DX: R07.89 Other chest pain (principal); R06.00 Dyspnea, unspecified; F41.9 Anxiety disorder, unspecified
CPT/HCPCS: 82435-PO; 82565-PO; 82947-PO; 84132-PO; 84295-PO; 84484-ER; 84520-PO; 85014-ER